=== PATIENT | female | born 1980 | race Caucasian/White ===

== ENCOUNTER 2018-01-16 06:17 | Inpatient (IN) | payer MEDICAID ==
[2018-01-16] MEDS ORDERED: MISOPROSTOL 200 MCG TAB PR PRN (07:04)
[2018-01-16] MEDS ORDERED: IBUPROFEN 600 MG TAB PO PRN (07:04)
[2018-01-16] MEDS ORDERED: OLIVE OIL 118 ML BTL MISC PRN (07:04)
[2018-01-16] MEDS ORDERED: LR 1,000 ML IV PRN (07:04)
[2018-01-16] MEDS ORDERED: OXYTOCIN/RINGERS LACTATE 1,000 ML IV PRN (07:04)
[2018-01-16] MEDS ORDERED: TERBUTALINE SULFATE 1 MG/ML VIAL IV PRN (07:04)
[2018-01-16] MEDS ORDERED: EPSOM SALT 454 GM TP PRN (07:04)
[2018-01-16] MEDS ORDERED: LIDOCAINE 1% 300 MG/30 ML SDV SC PRN (07:04)
[2018-01-16 07:18] LABS: PLATELET COUNT 240 10^3/uL (150-400)
[2018-01-16] MEDS ORDERED: LR 500 ML IV PRN (07:29)
[2018-01-16] MEDS ORDERED: OXYTOCIN/RINGERS LACTATE 500 ML IV SCH (07:30)
--- NOTE | 2018-01-16 08:58 | PDGENHP ---
History and Physical History and Physical: CARE: [facility] HPI: Patient is a 37 yo G 1 P 0 at 41 weeks ega who presents to L&D for IOL. She denies regular painful contractions, LOF or VB. She states baby has been active. She has had an uneventful course. Her is complicated by AMA and h/o marijuana use, although her initial UDS was negative and she states she quit using MJ with . All of her genetic screening and level II ultrasound at 20 weeks were normal. She has been treated for anemia since 28 weeks. EDC: 01/09/2018 which is based on LMP: 04/04/17 which is known and consistent with Ultrasound at 39 weeks. Review of Systems: Constitutional: Denies any fever, chills, or fatigue HEENT: denies any visual changes, difficulty swallowing, hearing loss Cardiovascular: Denies any chest pain, palpitations, leg swelling Respiratory: denies any cough, wheezing, or shortness of breathe GI: Denies any nausea, vomiting, diarrhea, constipation : denies any dysuria, urgency, frequency, vaginal bleeding Musculoskeletal: denies any muscle or bone pain Skin: denies any rashes Neuro: denies any headache, seizures, lightheadedness, dizziness, or loss of consciousness Psychiatric: denies any depression, anxiety, or SI/HI thoughts HISTORY: Previous OB history: none Past medical history: none Past surgical history: none Medications: PNV, iron Allergies (list reaction): PCN- rash LABS: Rh: A pos ABS: Neg Rubella: Immune HbsAg: NR HIV: NR VDRL: NR 1hr: 105 GC: Neg Chlamydia: Neg Pap: Normal GBS: neg BMI: (prepreg) 28 PHYSICAL EXAM: Constitutional: WN, A&Ox3 HEENT: normocephalic atraumatic, supple Heart: RRR, no murmur Chest: CTA-B Abdomen: Soft, nontender, gravid SVE: 3/50/-2 Extremities: sml pedal edema, negative jesse's sign Neuro: grossly normal Psych: normal affect assessment: Reassuring FHTs, baseline 130s +accels, no decels, moderate variability Contractions: toco q 5-6 Assessment: 1) 37 yo G 1 P 0 with IUP@ 41 weeks ega 2) IOL - postdates 3) GBS neg 4) Cat 1 FHR tracing Plan: 1) Admit to L&D 2) Pitocin induction per protocol 3) Continuous monitoring 4) Diet as tolerated 5) Pain relief as patient desires 6) AROM when able 7) Anticipate
--- NOTE | 2018-01-16 10:42 | OBPROG ---
Labor Progress Note Assessment/Plan: Assessment: 37 y/o - IOL at 41 weeks ega Pitocin 4 mu AROM mod amt clear fluid Cat 1 EFM Plan: Continue pitocin induction per protocol Pain relief as patient desires Anticipate 01/16/18 21:10 Subjective/Intrapartum Course: 01/16/18 21:13 Patient starting to feel contractions but remains fairly comfortable Objective: 01/16/18 07:00 Patient ABO/Rh A POSITIVE 01/16/18 07:00 - SVE Dilation (cm): 3 Effacement (%): 75 Station: -2 Membranes: AROM Amniotic Fluid Color: Clear - Contraction Pattern Assessment Current Contraction Pattern: Regular - Procedures Non-surgical Procedures: Amniotomy Oxytocin Orders Assessment - Pre-Induction/Augmentation Assessment Gestational Age: 41 week(s) and 0 day(s) ICD10 Worksheet Patient Problems: Problems Problem Status Onset AMA (advanced maternal age) primigravida 35+ Acute Post-dates Acute - ICD10 Problem Qualifiers (1) Post-dates (2) AMA (advanced maternal age) primigravida 35+
--- NOTE | 2018-01-16 12:43 | OBPROG ---
Labor Progress Note Assessment/Plan: Assessment: Plan: Objective: 01/16/18 07:00 Patient ABO/Rh A POSITIVE 01/16/18 07:00 - SVE Membranes: AROM Amniotic Fluid Color: Clear Oxytocin Orders Assessment - Pre-Induction/Augmentation Assessment Gestational Age: 41 week(s) and 0 day(s)
[2018-01-16] MEDS ORDERED: LIDOCAINE 1% 300 MG/30 ML SDV ONE (13:51)
[2018-01-16] MEDS ORDERED: OLIVE OIL 118 ML BTL ONE (13:51)
[2018-01-16] MEDS ORDERED: OXYTOCIN 10 UNIT/ML VIAL ONE (13:52)
[2018-01-16] MEDS ORDERED: fentaNYL 200 MCG, BUPIVACAINE 0.5% 20 ML in NS 100 ML EP SCH ×2 (14:30→17:00)
[2018-01-16] MEDS ORDERED: PHENYLEPHRINE HCL 100 MCG/ML SYR ONE (14:32)
[2018-01-16] MEDS ORDERED: BUPIVACAINE 0.25% 30 ML SDV ONE (14:32)
[2018-01-16] MEDS ORDERED: fentaNYL 100 MCG/2 ML INJ ONE (14:33)
[2018-01-16] MEDS ORDERED: PHENYLEPHRINE HCL 100 MCG/ML SYR IVP PRN (16:37)
[2018-01-16] MEDS ORDERED: ONDANSETRON 4 MG/2 ML VIAL IVP PRN (16:37)
--- NOTE | 2018-01-16 16:42 | PREANESOB ---
Obstetric Pre-Anesthesia Info - General Info Proposed Procedure: Labor and delivery with pitocin. : 1 Para: 0 JOSE A: 01/09/18 Gestational Age: 41 week(s) and 0 day(s) - Info Status: Postmature Monitors: External FHR Baseline (bpm): 135 FHR Pattern: Reassuring - Labor Status Cervical Dilation per last OB SVE: 3 Station per last OB SVE: -2 Amniotic Fluid Color: Clear Pitocin: In Use Indications for Labor Analgesia: Induction of Labor, Pain Control Labor Epidural: Proposed Anesthesia ROS: [place] teeth removed. Allergies/Adverse Reactions: Allergy/AdvReac Type Severity Reaction Status Date / Time Penicillins Allergy Verified 01/16/18 07:02 Visit Medications: Generic Name Dose Route Start Last Admin Trade Name Freq PRN Reason Stop Dose Admin Lactated Ringer's 1,000 mls @ 0 mls/hr 01/16/18 07:04 01/16/18 08:24 Lr IV 01/17/18 07:03 1,000 mls PRN PRN Administration SEE PROTOCOL CONDITIONS Protocol Per Protocol Oxytocin/Lactated Ringer's 1,000 mls @ 125 mls/hr 01/16/18 07:04 Pitocin 20 Units/Lr (Premix) IV PRN PRN Post bleeding Lactated Ringer's 500 mls @ 500 mls/hr 01/16/18 07:29 Lr IV 01/17/18 07:30 PRN PRN Maternal Hypotension Oxytocin/Lactated Ringer's 500 mls @ 0 mls/hr 01/16/18 07:30 01/16/18 08:23 Pitocin 30 Units/Lr (Premix) IV 07/15/18 07:29 500 mls CONT SERENE Administration Protocol Per Protocol Fentanyl 200 mcg/ Bupivacaine 100 mls @ 0 mls/hr 01/16/18 14:30 HCl 20 ml/ Sodium Chloride EP 01/26/18 14:29 CONT SERENE Protocol As Directed Ibuprofen 600 mg 01/16/18 07:04 Motrin PO ONCE PRN post , pain Lidocaine HCl 300 mg 01/16/18 07:04 Lidocaine Hcl 1% SC 07/15/18 07:03 ONCE PRN episiotomy Magnesium Sulfate 454 gm 01/16/18 07:04 Epsom Salt TP 07/15/18 07:03 Q1H PRN perineal discomfort Misoprostol 800 - 1,000 mcg 01/16/18 07:04 Cytotec NH ONCE PRN Vaginal Atony/Bleeding [place] Oil 118 ml 01/16/18 07:04 Sweet Oil MISC 07/15/18 07:03 ONCE PRN perineal massage Terbutaline Sulfate 0.25 mg 01/16/18 07:04 Brethine IV 07/15/18 07:03 ONCE PRN Tachysystole Discontinued Medications Generic Name Dose Route Start Last Admin Trade Name Lurdes PRN Reason Stop Dose Admin Bupivacaine HCl Confirm 01/16/18 14:32 Sensorcaine 0.25% Sdv Administered 01/16/18 14:33 Dose 30 ml .ROUTE .STK-MED ONE Fentanyl Confirm 01/16/18 14:33 Sublimaze Administered 01/16/18 14:34 Dose 100 mcg .ROUTE .STK-MED ONE Lidocaine HCl Confirm 01/16/18 13:51 Lidocaine Hcl 1% Administered 01/16/18 13:52 Dose 300 mg .ROUTE .STK-MED ONE [place] Oil Confirm 01/16/18 13:51 Sweet Oil Administered 01/16/18 13:52 Dose 118 ml .ROUTE .STK-MED ONE Oxytocin Confirm 01/16/18 13:52 Pitocin Administered 01/16/18 13:53 Dose 20 unit .ROUTE .STK-MED ONE Phenylephrine HCl Confirm 01/16/18 14:32 Neosynephrine Administered 01/16/18 14:33 Dose 1,000 mcg .ROUTE .STK-MED ONE - Anesthesia History Response to Local Anesthetics: Normal Anesthesia & Operative History: No Prior Problems Family Anesthesia History: Negative - Social History Substance Use/Abuse: Denies - Vital Signs Blood Pressure: 123/57 Heart Rate: 74 Height/Weight (Nursing): Height 160.02 cm Weight 85.275 kg - Focused Exam Neck exam: FROM Mallampati Score: Class 1 Mouth exam: normal dental/mouth exam Pulmonary: no respiratory distress Cardiovascular: regular rate and rhythym Labs: 01/16/18 07:00 Patient ABO/Rh A POSITIVE 01/16/18 07:00 - Plan Anesthetic Plan: CSE Consent Signed and on Chart: Yes Patient/Guardian Understands and Agrees to Plan: Yes Urgent/Emergent Case: Tete champagne completed preop but documented later for safe timely pt care
[2018-01-16] MEDS ORDERED: fentaNYL 2MCG/ML/BUP 0.1% RTU 100 ML EP SCH (17:00)
[2018-01-16] MEDS ORDERED: LR 500 ML IV SCH (17:00)
[2018-01-16] MEDS ORDERED: LIDO/EPI 2% **for epidural** 20 ML SDV ONE (19:31)
--- NOTE | 2018-01-16 21:19 | OBPROG ---
Labor Progress Note Assessment/Plan: Assessment: Patient comfortable with epidural. Pitocin at 10 mu. Category 1 EFM SVE 7/80/-2 with some molding Plan: Continue pitocin per protocol IUPC if progress slows Anticipate NSVE 01/16/18 21:17 Objective: 01/16/18 07:00 Patient ABO/Rh A POSITIVE 01/16/18 07:00 Temp Pulse Resp BP Pulse Ox 74 123/57 H 01/16/18 17:44 01/16/18 17:44 - SVE Dilation (cm): 7 Effacement (%): 80 Station: -2 Membranes: AROM Amniotic Fluid Color: Clear - Contraction Pattern Assessment Current Contraction Pattern: Regular - Procedures Non-surgical Procedures: Amniotomy Oxytocin Orders Assessment - Pre-Induction/Augmentation Assessment Gestational Age: 41 week(s) and 0 day(s) ICD10 Worksheet Patient Problems: Problems Problem Status Onset AMA (advanced maternal age) primigravida 35+ Acute Post-dates Acute - ICD10 Problem Qualifiers (1) Post-dates (2) AMA (advanced maternal age) primigravida 35+
[2018-01-17] MEDS ORDERED: LIDO/EPI 2% **for epidural** 20 ML SDV ONE ×2 (04:35→07:07)
--- NOTE | 2018-01-17 04:58 | OBPROG ---
Labor Progress Note Assessment/Plan: Assessment: Patient very uncomfortable with contractions and tired. SVE - exam by RN had been documented as completely dilated, and had been pushing although when checked at 0445 she was found to still have an anterior lip which I reduced with a contraction. Pushing effort good, although little decent with pushing. Will notify anesthesia of need for epidural bolus and will resume pushing when more comfortable. IUPC placed at 2300 - MVUs over 200 consistently. 01/16/18 21:17 01/17/18 04:49 01/17/18 05:24 Objective: 01/16/18 07:00 Patient ABO/Rh A POSITIVE 01/16/18 07:00 Temp Pulse Resp BP Pulse Ox 74 123/57 H 01/16/18 17:44 01/16/18 17:44 - SVE Dilation (cm): 10 Station: -2 Membranes: AROM Amniotic Fluid Color: Clear - Contraction Pattern Assessment Current Contraction Pattern: Regular - Procedures Non-surgical Procedures: Amniotomy Oxytocin Orders Assessment - Pre-Induction/Augmentation Assessment Gestational Age: 41 week(s) and 0 day(s) ICD10 Worksheet Patient Problems: Problems Problem Status Onset AMA (advanced maternal age) primigravida 35+ Acute Post-dates Acute - ICD10 Problem Qualifiers (1) Post-dates (2) AMA (advanced maternal age) primigravida 35+
--- NOTE | 2018-01-17 07:18 | OBPROG ---
Labor Progress Note Assessment/Plan: Assessment: Lucille has been pushing for two hours with very little decent. Currently -1 station. Molding and caput increasing. ROT position. EFM category 2 with variables - reassuring with mod variability and accels. MVUs 200 plus. Patient desires at this time. Will consult with Dr Vazquez. 01/16/18 21:17 01/17/18 04:49 01/17/18 05:24 01/17/18 07:10 Objective: 01/16/18 07:00 Patient ABO/Rh A POSITIVE 01/16/18 07:00 Temp Pulse Resp BP Pulse Ox 74 123/57 H 01/16/18 17:44 01/16/18 17:44 - SVE Membranes: AROM Amniotic Fluid Color: Clear - Contraction Pattern Assessment Current Contraction Pattern: Regular - Procedures Non-surgical Procedures: Amniotomy Oxytocin Orders Assessment - Pre-Induction/Augmentation Assessment Gestational Age: 41 week(s) and 0 day(s) ICD10 Worksheet Patient Problems: Problems Problem Status Onset AMA (advanced maternal age) primigravida 35+ Acute Post-dates Acute - ICD10 Problem Qualifiers (1) Post-dates (2) AMA (advanced maternal age) primigravida 35+
[2018-01-17] MEDS ORDERED: fentaNYL 100 MCG/2 ML INJ ONE ×2 (07:36→08:53)
[2018-01-17] MEDS ORDERED: LR 500 ML IV ONE (08:02)
[2018-01-17] MEDS ORDERED: CITRIC ACID/SODIUM CITRATE 30 ML UDCUP PO ONE (08:03)
[2018-01-17] MEDS ORDERED: CLINDAMYCIN 900 MG/DEXTROSE 50 ML IV ONE (08:03)
--- NOTE | 2018-01-17 08:04 | OBPROG ---
Labor Progress Note Assessment/Plan: Assessment: I examined Lucille and found significant caput, bones at zero to -1 station, tight pelvis. I counseled her that given this exam and how long she's already pushed, I would recommend for delivery. She agrees with this. We discussed OVD w/ vacuum or forceps but I would not recommend that in this situation. RBA discussed and consents signed. Subjective/Intrapartum Course: 01/18/18 02:52 Met with Lucille early this AM as I came on at 7am. Subjectively exhausted, ready to be done. Objective: 01/16/18 07:00 Patient ABO/Rh A POSITIVE 01/16/18 07:00 Temp Pulse Resp BP Pulse Ox 74 123/57 H 01/16/18 17:44 01/16/18 17:44 - SVE Dilation (cm): 10 Effacement (%): 100 Station: -1, 0 Membranes: AROM Amniotic Fluid Color: Clear - Contraction Pattern Assessment Current Contraction Pattern: Regular - FHR Assessment [place] FHR (bpm): 140 FHR Pattern Variability: Moderate FHR Category: 1 - Procedures Non-surgical Procedures: Amniotomy Oxytocin Orders Assessment - Pre-Induction/Augmentation Assessment Gestational Age: 41 week(s) and 0 day(s) ICD10 Worksheet Patient Problems: Problems Problem Status Onset AMA (advanced maternal age) primigravida 35+ Acute Arrest of descent, delivered, current hospitalization Acute CPD (cephalo-pelvic disproportion) Acute Post-dates Acute - ICD10 Problem Qualifiers (1) Arrest of descent, delivered, current hospitalization (2) CPD (cephalo-pelvic disproportion) Qualifiers: Cephalopelvic disproportion type: mixed maternal and factors Fetus number: single or unspecified fetus Qualified Code(s): O33.4XX0 - Maternal care for disproportion of mixed maternal and origin, not applicable or unspecified
[2018-01-17] MEDS ORDERED: LR 1,000 ML IV SCH (08:30)
[2018-01-17] MEDS ORDERED: DEXAMETHASONE 4 MG/ML VIAL ONE ×2 (08:46)
[2018-01-17] MEDS ORDERED: PHENYLEPHRINE HCL 100 MCG/ML SYR ONE (08:46)
[2018-01-17] MEDS ORDERED: OXYTOCIN 100 UNITS/10 ML VIAL ONE (08:46)
[2018-01-17] MEDS ORDERED: ONDANSETRON 4 MG/2 ML VIAL ONE ×2 (08:46)
[2018-01-17] MEDS ORDERED: morphINE PF 5 MG/10 ML INJ ONE (08:47)
[2018-01-17] MEDS ORDERED: ACETAMINOPHEN 325 MG TAB PO PRN (09:45)
[2018-01-17] MEDS ORDERED: PROMETHAZINE HCL 25 MG/ML INJ IVP PRN (09:45)
--- NOTE | 2018-01-17 09:48 | SUROPNOTE ---
[facility] Operative Report - Surgery Date of Operation: 01/18/18 Surgeon: Rusty Vazquez Alteration Tailor Apprentice: Eloina Macario Anesthesiologist: Thomas Kilpatrick Anesthesia: Epidural Pre-op Diagnosis: Arrest of descent Post-op Diagnosis: Same, uterine fibroids Procedure: PLTCS Findings: Vigorous baby in OA position, tight pelvis, numerous 1-4cm subserosal fibroids Inf/Abcess present in the surg proc area at time of surgery?: No EBL: 800cc Complications: None Specimen(s): Placenta not sent, cord gasses not sent. Technique: The patient was taken to the OR where epidural was dosed and anesthesia found to be adequate. The patient was then positioned supine with a leftward tilt and a time-out was performed. She was given weight-based antibiotics prior to skin incision. The abdomen was prepped and draped in normal sterile fashion. A Pfannenstiel skin incision was made with the scalpel and carried down to the fascia. The fascia was incised in the midline and the incision extended bilaterally sharply with scissors. The fascia was dissected off of the underlying rectus muscles superiorly and inferiorly also sharply using scissors. The rectus were in the midline and the peritoneum identified and entered bluntly without issue. The peritoneal incision was extended and the bladder blade was then placed. The vesicouterine junction was identified and a bladder flap not created. A transverse incision was made with the scalpel in the lower uterine segment and extended with cephalad and caudad traction on the incision edges. The head was encountered and easily elevated out of the pelvis and delivered atraumatically, followed by the shoulders and body. Head in OA position, but deeply wedged in pelvis, very tight pelvis.The nose and mouth were bulb suctioned. We did wait for 60 seconds before clamping and cutting the cord and then the was handed to pediatric staff. Cord blood gases were not sent and the placenta was not sent to pathology. The uterus was then exteriorized and carefully wiped of all debris. The uterus was closed in two layers - the first layer was running with 180 0-vloc and the second a vertical imbricating layer using 0-vicryl. The gutters were cleared of all clots. The uterine incision was reinspected and found to be hemostatic after placement of additional figure of eight sutures of 3-0 vicryl. The uterus was then returned to the abdomen. The fascia was elevated and the rectus muscles and subcutaneous tissues were found to be hemostatic. The fascia was closed with a running 0-Vicryl - single suture. The subcutaneous tissues were irrigated and hemostasis obtained. The subcutaneous space was closed with interrupted sutures of 2-0 vicryl. The skin was closed with 4-0 vloc undyed and then covered with Medipore dressing. The patient tolerated the procedure and was taken to recovery in stable condition. Lap, needle, sponge, and instrument count were announced as correct times two. I was present and scrubbed for the entire case.
--- NOTE | 2018-01-17 09:58 | POSTANESTH ---
Post Anesthetic Evaluation Cardiovascular Status: Normal, Stable, Similar to Pre-Op Cond Respiratory Status: Normal, Stable, Similar to Pre-op Cond. Level of Consciousness/Mental Status: Can Participate in Eval, Alert and Oriented (Doing well in PACU after C Section with epidural anesthesia.) Pain Control: Adequate, Prn Tx Ordered Nausea/Vomiting Control: Adequate, Prn Tx Ordered Complications Possibly Related to Anesthesia: None Noted
[2018-01-17] MEDS ORDERED: KETOROLAC 30 MG/1 ML SDV ONE (10:48)
[2018-01-17] MEDS: KETOROLAC 30 MG/1 ML SDV IVP SCH ×3 (10:53→23:42)
[2018-01-17] MEDS: SIMETHICONE 80 MG TAB CHEW PO PRN (15:59)
[2018-01-18] MEDS: KETOROLAC 30 MG/1 ML SDV IVP SCH (05:39)
[2018-01-18] MEDS: SIMETHICONE 80 MG TAB CHEW PO PRN ×2 (09:45→21:30)
[2018-01-18] MEDS: DOCUSATE SODIUM 100 MG CAP PO PRN ×2 (09:46→20:08)
[2018-01-18] MEDS: IBUPROFEN 600 MG TAB PO PRN ×3 (09:46→23:08)
--- NOTE | 2018-01-18 10:11 | OBPP ---
Progress Note Assessment/Plan: Assessment: 37yo s/p primary c/s for arrest of descent POD#1 anemia Plan: routine PO care start PO iron BID support encouraged increasing PO fluids ambulate anticipate d/c home in 24-48hours 01/18/18 10:12 Subjective/ Course: 01/18/18 10:13 Pt doing well, she denies any severe pain or heavy bleeding. She is ambulating and voiding (small amounts). She is . She is happy with overall outcome. She is adjusting well. Denies any sadness or depression. Objective: 01/18/18 05:45 Patient ABO/Rh A POSITIVE 01/16/18 07:00 Temp Pulse Resp BP Pulse Ox 36.6 C 86 18 92/57 L 93 01/18/18 09:32 01/18/18 09:32 01/18/18 09:32 01/18/18 09:32 01/18/18 09:32 Uterine Position/Fundal Height: Umbilicus -1, Midline Uterine Tone: Firm Physical Exam - Physical Exam General Appearance: WD/WN, alert, no apparent distress Neck: supple Respiratory: normal breath sounds Cardiac/Chest: regular rate, rhythm Abdomen: non-tender, soft, flatus, dressing (C/D/I) Extremities: non-tender, pedal edema Skin: normal color, warm/dry Neuro/Psych: alert, normal mood/affect, oriented x 3
[2018-01-18] MEDS: HYDROCODONE/APAP 5/325 TAB PO PRN ×3 (12:19→20:09)
[2018-01-18] MEDS: IRON POLYSAC/IRON HEME 28 MG TAB PO SCH ×2 (16:07→20:08)
[2018-01-19] MEDS: IBUPROFEN 600 MG TAB PO PRN ×3 (05:14→17:48)
[2018-01-19] MEDS: SIMETHICONE 80 MG TAB CHEW PO PRN ×3 (05:14→23:59)
[2018-01-19] MEDS: IRON POLYSAC/IRON HEME 28 MG TAB PO SCH ×2 (08:35→21:00)
[2018-01-19] MEDS: HYDROCODONE/APAP 5/325 TAB PO PRN ×4 (08:35→23:59)
[2018-01-19] MEDS: DOCUSATE SODIUM 100 MG CAP PO PRN ×2 (08:37→23:54)
--- NOTE | 2018-01-19 17:02 | OBPP ---
Progress Note Assessment/Plan: Assessment: p1 pod# 2 s/p PLTCS uncomplicated post operative and post course anemia breast feeding Plan: routine post care 01/19/18 17:00 Subjective/ Course: 01/18/18 10:13 Pt doing well, she denies any severe pain or heavy bleeding. She is ambulating and voiding (small amounts). She is . She is happy with overall outcome. She is adjusting well. Denies any sadness or depression. 01/19/18 17:00 patient is doing well. pain is well controlled. normal lochia. denies headache and changes in vision. breast feeding is going well. passing gas. voiding without difficulty. ambulating. using apno for nipple pain. Objective: 01/18/18 05:45 Patient ABO/Rh A POSITIVE 01/16/18 07:00 Temp Pulse Resp BP Pulse Ox 36.5 C 98 20 117/59 L 90 L 01/18/18 19:45 01/18/18 19:45 01/18/18 19:45 01/18/18 19:45 01/18/18 19:45 Physical Exam - Physical Exam Neck: non-tender, full range of motion Respiratory: chest non-tender, lungs clear, normal breath sounds Cardiac/Chest: normal peripheral pulses, regular rate, rhythm Abdomen: normal bowel sounds, non-tender Extremities: normal range of motion, non-tender, normal inspection, normal capillary refill Skin: normal color, warm/dry, other (incision clean dry and intact) Neuro/Psych: no motor/sensory deficits, alert, normal mood/affect, oriented x 3
[2018-01-20] MEDS: HYDROCODONE/APAP 5/325 TAB PO PRN ×3 (05:31→13:59)
[2018-01-20] MEDS: IBUPROFEN 600 MG TAB PO PRN ×3 (05:38→11:37)
[2018-01-20] MEDS: DOCUSATE SODIUM 100 MG CAP PO PRN (10:23)
[2018-01-20] MEDS: SIMETHICONE 80 MG TAB CHEW PO PRN (10:23)
[2018-01-20] MEDS: IRON POLYSAC/IRON HEME 28 MG TAB PO SCH (10:23)
--- NOTE | 2018-01-20 13:06 | OBPP ---
Progress Note Assessment/Plan: Assessment: 1) s/p PLTCS POD # 3 - pt is stable 2) Anemia - pt is asymptomatic Plan: Plan for d/c home today Instructions reviewed with pt Rx given for Motrin and Danese Cont PNV, iron and colace Pelvic rest RTC in 2 weeks for incision check 01/20/18 13:03 Subjective/ Course: 01/18/18 10:13 Pt doing well, she denies any severe pain or heavy bleeding. She is ambulating and voiding (small amounts). She is . She is happy with overall outcome. She is adjusting well. Denies any sadness or depression. 01/19/18 17:00 patient is doing well. pain is well controlled. normal lochia. denies headache and changes in vision. breast feeding is going well. passing gas. voiding without difficulty. ambulating. using apno for nipple pain. 01/20/18 13:04 Pt seen and examined. Doing well, pain is well controlled. Only take Danese x 1. Mild lochia. She is OOB, joyce reg diet, voiding and passing flatus. Denies any f/ c/n/v/CP or SOB. No BM yet. BF is going well so far, pumping and using Apno. Ready to go home. Objective: 01/18/18 05:45 Patient ABO/Rh A POSITIVE 01/16/18 07:00 Temp Pulse Resp BP Pulse Ox 36.3 C 90 16 126/76 H 95 01/19/18 20:00 01/19/18 20:00 01/19/18 20:00 01/19/18 20:00 01/19/18 20:00 Uterine Position/Fundal Height: Umbilicus -2 Uterine Tone: Firm Physical Exam - Physical Exam General Appearance: WD/WN, alert, no apparent distress Respiratory: lungs clear, normal breath sounds Cardiac/Chest: regular rate, rhythm Abdomen: normal bowel sounds, non-tender, soft, flatus (+), incision (C/D/I, well approximated) Extremities: non-tender, normal inspection Skin: normal color, warm/dry Neuro/Psych: alert, normal mood/affect, oriented x 3
--- NOTE | 2018-01-20 13:06 | OBGCSDC ---
General Delivery Information - General Info : 1 Para: 1 Abortions: 0 L&D Analgesia/Anesthesia Type: Epidural Admission Date: 01/16/18 Labs: Patient ABO/Rh A POSITIVE 01/16/18 07:00 Hct 28.5 % (38.0-47.0) L 01/18/18 05:45 - Hospital Course Intrapartum: 01/18/18 02:52 Met with Lucille early this AM as I came on at 7am. Subjectively exhausted, ready to be done. : 01/18/18 10:13 Pt doing well, she denies any severe pain or heavy bleeding. She is ambulating and voiding (small amounts). She is . She is happy with overall outcome. She is adjusting well. Denies any sadness or depression. 01/19/18 17:00 patient is doing well. pain is well controlled. normal lochia. denies headache and changes in vision. breast feeding is going well. passing gas. voiding without difficulty. ambulating. using apno for nipple pain. 01/20/18 13:04 Pt seen and examined. Doing well, pain is well controlled. Only take [place] x 1. Mild lochia. She is OOB, joyce reg diet, voiding and passing flatus. Denies any f/ c/n/v/CP or SOB. No BM yet. BF is going well so far, pumping and using Apno. Ready to go home. Vaginal - Diagnosis Amniotic Fluid Color: Clear - Procedures Non-surgical Procedures: Amniotomy - Delivery Providers Surgeon: Rusty Vazquez - Delivery Non-surgical Procedures: Amniotomy [place] Data JOSE A: 01/09/18 Gestational Age: 41 week(s) and 4 day(s) [place] Delivery Date: 01/17/18 Delivery Time: 08:49 [place] Weight (gm): 3740 kg Score (1 Min): 8 Score (5 Min): 9 Discharge Information - Discharge Information Condition: Good Instruction/Follow Up: Two Weeks
[2018-01-20 16:00] VITALS: BP 123/75
== END 2018-01-20 14:00 | disposition home or self-care (01) | DRG 540 ==
LOC: FLD 06:17 → FOB 01-17 15:07
PROVIDERS: ADMIT Advanced Practice Midwife; ATTEND Advanced Practice Midwife
PROC: 10D00Z1 Extraction of Products of Conception, Low, Open Approach (ICD-10-PCS; principal; 2018-01-18)
PROC: 10907ZC Drainage of Amniotic Fluid, Therapeutic from Products of Conception, Via Natural or Artificial Opening (ICD-10-PCS; principal; 2018-01-18)
DX: O62.1 Secondary uterine inertia (principal); D25.2 Subserosal leiomyoma of uterus; O48.0 Post-term pregnancy; Z37.0 Single live birth; Z3A.41 41 weeks gestation of pregnancy; O34.13 Maternal care for benign tumor of corpus uteri, third trimester; O99.03 Anemia complicating the puerperium; D64.9 Anemia, unspecified
CPT/HCPCS: J1100; J1885; J2274; J2370; J2405; J2590; J3010

== ENCOUNTER 2018-02-17 10:46 | Observation (INO) | payer MEDICAID ==
[2018-02-17] MEDS ORDERED: ACETAMINOPHEN 500 MG TAB PO PRN ×2 (13:59→20:37)
[2018-02-17] MEDS ORDERED: KETOROLAC 15 MG/1 ML SDV IVP ONE (13:59)
[2018-02-17] MEDS ORDERED: ONDANSETRON 4 MG/2 ML VIAL IVP PRN (13:59)
--- NOTE | 2018-02-17 14:57 | GHP ---
[f rep st] HISTORY AND PHYSICAL DATE OF ADMISSION: 02/17/2018 CHIEF COMPLAINT: Fever. HISTORY OF PRESENT ILLNESS: Lucille is a 37-year-old woman who delivered on January 17, 2018. She unfortunately developed an infection at her site. She was placed on Keflex and the cellulitis improved. I performed incision and drainage in the office. We initially had treated her with wound VAC therapy. However, this is becoming difficult to pack accurately in the cavity. She developed a fever of 102 yesterday, and with Tylenol it would break but would come back. She then again developed a fever today and presented to [place]. Per report, her white blood cell count was 9000 there, and her BMP was within normal limits. PAST MEDICAL HISTORY: None. PAST SURGICAL HISTORY: . ALLERGIES: Penicillin. FAMILY HISTORY: Hypertension. SOCIAL HISTORY: No tobacco. REVIEW OF SYSTEMS: 10-point review of systems negative. PHYSICAL EXAM: VITAL SIGNS: 36.7, 83, 115/67, 14, 96%. GENERAL: Pleasant well-nourished, well-groomed woman lying in hospital bed with baby sleeping at bedside. HEENT: Normocephalic. No gross hearing deficits. Mucous membranes moist. Pupils equal and round. No scleral icterus. LUNGS: Clear to auscultation bilaterally. No increased work of breathing. CARDIAC: Regular rate. No peripheral edema. ABDOMEN: Bowel sounds present. Soft, nontender. SKIN: She has a wound at the Pfannenstiel incision that travels laterally. Hydrofera Blue was removed. RESULTS REVIEWED: I personally reviewed the results of her ultrasound and discussed the findings with Dr. Cruz. She does have a 3 x 1 x 3 fluid collection that is draining. IMPRESSION AND PLAN: Lucille Oakley is a 37-year-old woman, who had a previous cellulitis of her abdomen and infected site. I am going to discuss the case with Dr. Lisa Bright. One option would be trying to initiate wound VAC therapy again in order to evacuate more of the fluid versus going to the operating room and opening this up further. I also discussed the case with Danni Shelton, certified nurse clothes wringer. /[id number]/MODL MTDD
--- NOTE | 2018-02-17 16:04 | PCMIDPN ---
Assessment/Plan: #Fever: suspect due un-drained area under incision, no other localizing symptoms. WBC normal. No cellulitis remains --check blood cultures --reasonable to monitor patient overnight if needed in light of fever #Post op infection C section, past cx E coli only R to amp, amp/s --Dr. De La Rosa 2 open incision a bit more to allow for better drainage and reculture wound if feasible --empiric Keflex 500mg PO TID x 1 week --Keflex is safe during Subjective: 37 yo woman status post on 01/18/2018 whose course was complicated by incisional infection with E Coli 01/24/18. She was initially treated with Bactrim and the wound was observed without drainage. While taking Bactrim, she felt like her breast milk production decreased so this was discontinued and she was initiated on cephalexin around 02/01/18 and received a 5 day course. She was evaluated by my partner Dr. Camilo 02/05/2018 with no residual cellulitis evident. She has been off antibiotics since the following day. Over the last 24 hr patient developed significant malaise and developed a fever to 102 at home. She denies any other localizing symptoms, no cough, no shortness of breath, no: sore throat, sinus congestion, rash, dysuria, diarrhea , breast pain. Patient is breast-feeding and that is continuing to proceed without difficulty. There has been difficulty getting wound VAC in place due to significant tunneling. Ultrasound today revealed a persistent fluid collection below the skin almost 4 cm in a dimension. She denies increased pain in this area. She is here for ongoing evaluation of fever and postoperative infection. Objective: Vital Signs Temp Pulse Resp BP Pulse Ox 37.2 C 83 14 115/67 96 02/17/18 15:17 02/17/18 13:47 02/17/18 13:47 02/17/18 13:47 02/17/18 13:47 Microbiology 01/24/18 13:16 Abdomen - Escherichia Coli LABS [facility] Cr 1.03 WBC 9.2, 85%N HCT 38 PLTS 275 Physical exam Vital signs as above General: Young woman nontoxic intermittently tearful, holding HEENT: Good dentition moist mucous membranes Cardiovascular: Regular rate and rhythm no murmur Chest: Clear to auscultation bilaterally, breathing easy Abdomen: Soft nontender, Pfannenstiel incision with eraser size opening with purulent drainage, no surrounding cellulitis. Extremities: No clubbing cyanosis or edema Skin: No cellulitis, multiple tattoos - Time Spent With Patient Time Spent with Patient: greater than 35 minutes Time Spent with Patient: Greater than 35 minutes spent on this patients care, greater than 50% of time spent counseling, educating, and coordinating care regarding the above mentioned plan. ICD10 Worksheet Patient Problems: Problems Problem Status Onset AMA (advanced maternal age) primigravida 35+ Acute Arrest of descent, delivered, current hospitalization Acute CPD (cephalo-pelvic disproportion) Acute Post-dates Acute
[2018-02-17] MEDS ORDERED: LIDOCAINE 1% *Not for Epidural 20 ML MDV NB STA (16:32)
--- NOTE | 2018-02-17 17:23 | PDIAF ---
- Diagnosis Diagnosis: incisional abscess Code Status: Full Code - Medication Management Discharge Medications: Medications to Continue on Transfer Ibuprofen [Motrin (*)] 600 mg PO Q6HRS PRN #30 tab 01/20/18 [Last Taken 08:00] Cephalexin [Keflex (*)] 500 mg PO TID #21 cap 02/17/18 [Last Taken Unknown] Discharge Medications: Refer to the Discharge Home Medication list for PRN reason. - Orders Services needed: Home Care, Registered Nurse Home Care Face to Face: I certify that this patient was under my care and that I had the required [id number] encounter meeting the encounter requirements on the discharge day. My findings support the fact that the patient is homebound as defined in Home Care Face to Face Continued: CMS Chapter 7 Medicare Benefits Manual 30.1.1 , The condition of the patient is such that there exists a normal inability to leave home and consequently, leaving home would require a considerable and taxing effort. Diet Recommendation: no restrictions on diet Wound Care Instructions: wound vac change 3x per week. Can change this week on Monday and I will see her on Additional Instructions: wound vac change 3x per week - Follow Up Care Current Providers and Referrals: Kirstie Lam MD [Primary Care Provider] - Uyen Jacome MD [Medical Doctor] -
[2018-02-17] MEDS ORDERED: CEPHALEXIN 500 MG CAP PO SCH (18:00)
[2018-02-17] MEDS ORDERED: IBUPROFEN 600 MG TAB PO PRN (20:37)
[2018-02-18 08:39] VITALS: BP 140/78
--- NOTE | 2018-02-18 09:20 | PCMIDPN ---
Assessment/Plan: #Fever: suspect due un-drained area under incision (now opened up) versus UTI. It started ceftriaxone last night --check blood cultures --follow up on urine culture, will call patient with results --discharge on Keflex 500 mg p.o. Three times daily x5 days, start 02/19/2018 #Post op infection C section, past cx E coli only R to amp, amp/s # vaginal discharge: Follow-up with OB Patient examined and care coordinated with Dr. Uyen Jacome Subjective: Patient feels significantly improved this morning Feels like her fever broke last night Urinary symptoms resolved Complaining of vaginal discharge Objective: Vital Signs Temp Pulse Resp BP Pulse Ox 37.2 C 81 14 140/78 H 95 02/18/18 08:00 02/18/18 08:00 02/18/18 08:00 02/18/18 08:00 02/18/18 08:00 02/17/18 02/18/18 02/19/18 05:59 05:59 05:59 Intake Total 100 Balance 100 General: Pleasant nontoxic woman sitting in bed with infant Pulm: Breathing easy Pfannenstiel incision with wound VAC in place, no erythema PIV left antecubital C/D/I ICD10 Worksheet Patient Problems: Problems Problem Status Onset AMA (advanced maternal age) primigravida 35+ Acute Arrest of descent, delivered, current hospitalization Acute CPD (cephalo-pelvic disproportion) Acute Post-dates Acute
[2018-02-18 10:35] LABS: PLATELET COUNT 223 10^3/uL (150-400)
--- NOTE | 2018-02-18 12:12 | ASMTLACE ---
LACE Length of stay for Answers: Less than 1 day current admission Acuity / Level of Answers: No Care: Did the patient have an inpatient admission? Comorbidities - select Answers: Other Notes: Infection C-sec all that apply # of Emergency department Answers: 0 visits in the last 6 months Score: 1 Date Signed: 02/18/2018 12:12 PM Electronically Signed By:Helga Canela LCSW
--- NOTE | 2018-02-18 12:17 | ASMTCMCOM ---
CM Note CM Note Notes: 37yr old female admitted for fever and infection on her C-sec site. Had been tx with Wound Vac at the site. Keflex added as ABX. She lives with her Life Partner in [place]. Date Signed: 02/18/2018 12:16 PM Electronically Signed By:Helga Canela LCSW
--- NOTE | 2018-02-18 12:20 | ASMTDCNOTE ---
Case Management Discharge Discharge Order Complete? Answers: Yes Transportation Arranged Answers: Family/Friends Transport will Pick (Date 02/18/2018 01:00 PM & Time) Faxed Final Orders Answers: Yes Notes: [facility] reports that they have access to orders Family Notified Answers: Yes Notes: Family to transport Discharge Comments Notes: Patient has been discharged home. She will be followed by [facility], has a Wound Vac and PO ABX. Date Signed: 02/18/2018 12:20 PM Electronically Signed By:Helga Canela LCSW
--- NOTE | 2018-02-18 12:26 | ASDISCHSUM ---
Discharge Information Plan Status:Home with Home Health Medically Cleared to Leave:02/18/2018 Discharge Date:02/18/2018 CM D/C Disposition:Home Health Service ADT D/C Disposition:Home Health Service Projected Discharge Date:02/18/2018 12:00 PM Transportation at D/C:Family Discharge Delay Reason: Follow-Up Date:02/18/2018 12:00 PM Discharge Slot: Final Diagnosis:Fever: Infection at C-sec site Placement Information Referral Type:*Home Health Care Services Referral ID:[id number] Provider Name:[facility] Address 1:[address] [place] [address] Address 2: City:[place] Selection Factors: State:[place] Patient Contact Information Contact Name:Jung Relationship:Life Partner Address: Work Phone: City: [facility] Phone: [facility] Code: Email: Financial Information Financial Class:Medicaid Primary Plan Desc:MEDICAID [facility] [employer] POLICE AIDE Primary Plan Number:[id number] Secondary Plan Desc: Secondary Plan Number: Assessment Information LACE LACE Length of stay for Answers: Less than 1 day current admission Acuity / Level of Answers: No Care: Did the patient have an inpatient admission? Comorbidities - select Answers: Other Notes: Infection C-sec all that apply # of Emergency department Answers: 0 visits in the last 6 months Score: 1 Date Signed: 02/18/2018 12:12 PM Electronically Signed By:Helga Canela LCSW [facility] CM Progress Note CM Note CM Note Notes: 37yr old female admitted for fever and infection on her C-sec site. Had been tx with Wound Vac at the site. Keflex added as ABX. She lives with her Life Partner in [place]. Date Signed: 02/18/2018 12:16 PM Electronically Signed By:Helga Canela LCSW Case Management Discharge Plan Note Case Management Discharge Discharge Order Complete? Answers: Yes Transportation Arranged Answers: Family/Friends Transport will Pick (Date 02/18/2018 01:00 PM & Time) Faxed Final Orders Answers: Yes Notes: [facility] reports that they have access to orders Family Notified Answers: Yes Notes: Family to transport Discharge Comments Notes: Patient has been discharged home. She will be followed by [facility], has a Wound Vac and PO ABX. Date Signed: 02/18/2018 12:20 PM Electronically Signed By:Helga Canela LCSW Intervention Information
--- NOTE | 2018-02-18 14:42 | SOAPPROG ---
SOAP Progress Note Assessment/Plan: Assessment: 37 yo with c section infection ?UTI Vaginal discharge Not clear if infection from c section infection DC home on Keflex Change wound vac Monday and S: Feeling better today O: CTAB RRR Sitting up in bed, appears well Incision cdi, bs present, soft and non tender Plan: 02/18/18 14:35 Objective: Vital Signs Temp Pulse Resp BP Pulse Ox 37.2 C 81 14 140/78 H 95 02/18/18 08:00 02/18/18 08:00 02/18/18 08:00 02/18/18 08:00 02/18/18 08:00 Laboratory Results 02/18/18 10:15 02/17/18 02/18/18 02/19/18 05:59 05:59 05:59 Intake Total 100 Balance 100 ICD10 Worksheet Patient Problems: Problems Problem Status Onset AMA (advanced maternal age) primigravida 35+ Acute Arrest of descent, delivered, current hospitalization Acute CPD (cephalo-pelvic disproportion) Acute Post-dates Acute
--- NOTE | 2018-02-18 20:00 | GDS ---
[f rep st] DISCHARGE SUMMARY DATE OF ADMISSION: February 17, 2018 DATE OF DISCHARGE: February 18, 2018 REASON FOR ADMISSION: Fevers. OTHER PERTINENT DIAGNOSES: Infection status post . HISTORY/REASON FOR ADMISSION: Lucille Oakley is a 37-year-old woman, who has had a wound being packed after an infection from . She had a fever of 102. She presented to [facility] and then drove here. Her white blood cell count was normal. She did have purulent material from the wound that was stable. HOSPITAL COURSE: Incision and drainage was performed of the wound and wound VAC applied. She was put on IV antibiotics. Question was also if she had a urinary tract infection that was contributing. After IV antibiotics and opening the wound, she did feel considerably better and was able to be discharged home. CONDITION ON DISCHARGE: 1. Wound VAC in place. She has home health already set up. 2. Tolerates diet. 3. Pain controlled. She will follow up with Danni Shelton. If she has vaginal discharge, she will follow up with Dr. Jacome on . /[id number]/MODL MTDD
== END 2018-02-18 12:26 | disposition home health service (06) ==
LOC: F3E 13:01
PROVIDERS: ADMIT Surgery; ATTEND Surgery
DX: O86.0 Infection of obstetric surgical wound (principal); R50.9 Fever, unspecified
CPT/HCPCS: 76705; G0378; G0379; J0696; J1885